=== PATIENT | male | born 1965 ===

== ENCOUNTER 2018-12-09 17:21 | Observation (INO) | payer BC ==
[2018-12-09] MEDS ORDERED: Sodium Chloride 0.9% 1,000 ML IV SCH ×2 (18:15→21:15)
--- NOTE | 2018-12-09 18:27 | RAD ---
Date of service: 12/09/2018 HISTORY: Near syncope COMPARISON: No prior. TECHNIQUE: Chest PA and lateral FINDINGS: LINES AND TUBES: None. LUNG AND PLEURA: The lungs are well inflated and clear. No pleural effusion or pneumothorax. HEART AND MEDIASTINUM: The heart is not enlarged. No aortic atherosclerotic calcifications present. The hilar and mediastinal contours are within normal limits. SKELETAL STRUCTURES: The bony structures are within normal limits for the patient's age. VISUALIZED UPPER ABDOMEN: Normal. OTHER FINDINGS: None. IMPRESSION: No active pulmonary disease.
--- NOTE | 2018-12-09 18:34 | ED PDOC ---
Syncope/Near Syncope/Dizziness Time Seen by Provider: 12/09/18 17:48 Chief Complaint (Nursing): Dizziness/Lightheaded Chief Complaint (Provider): Near syncope History Per: Patient History/Exam Limitations: no limitations Onset/Duration Of Symptoms: Days Additional Complaint(s): 53 yo M with h/o HTN, HLD, DM presents to ER for evaluation of low blood pressure and near syncope today. Pt reports for the last 2 months he has been feeling weak and will occassionally get sweaty and feel like he may pass out. Today while at work he had this episode but also notes everything went black. His BP was checked at work and it was low. Pt notes he takes medication for high blood pressure and took it today, but unsure of the name. Pt notes 6 months ago he had a gastric sleeve so does not eat as much as he used to. Pt denies fevers, chills, URI symptoms, abdominal pain, nausea or vomiting, changes in BMs, chest pain, SOB, headache or changes in vision. PMD: Dr. [place]ico [place] Past Medical History Reviewed: Historical Data, Nursing Documentation, Vital Signs Vital Signs: Last Vital Signs Temp 97.8 F 12/09/18 17:27 Pulse 75 12/09/18 17:27 Resp 16 12/09/18 17:27 BP 97/57 L 12/09/18 17:27 Pulse Ox 100 12/09/18 17:27 Primary Care Provider: Ch[place] - Medical History PMH: Diabetes, HTN, Hypercholesterolemia - Surgical History Surgical History: Cholecystectomy, Hernia Repair - Family History Family History: States: Unknown Family Hx - Social History Current smoker - smoking cessation education provided: No Alcohol: Occasional (drinks 3-4 beers on weekends) Drugs: Denies - Immunization History Hx Tetanus Toxoid Vaccination: No Hx Influenza Vaccination: Yes Hx Pneumococcal Vaccination: No - Home Medications Home Medications: Ambulatory Orders Medication Instructions Recorded Metoprolol Tartrate [Lopressor] 25 mg PO DAILY #30 tab 06/12/16 Bismuth Subsalicylate [Pepto 2 tab PO Q1 PRN #16 ctb 11/13/16 Bismol] Dicyclomine [Bentyl] 1 tab PO TID PRN #30 tab 11/13/16 MetFORMIN 11/13/16 - Allergies Allergies/Adverse Reactions: Allergies Allergy/AdvReac Type Severity Reaction Status Date / Time No Known Allergies Allergy Verified 12/09/18 17:27 Review of Systems Constitutional: Negative for: Fever, Chills Eyes: Negative for: Vision Change Cardiovascular: Negative for: Chest Pain, Palpitations, Orthopnea Respiratory: Negative for: Cough, Shortness of Breath, Hemoptysis, SOB with Exertion Gastrointestinal: Negative for: Nausea, Vomiting, Abdominal Pain Neurological: Negative for: Weakness, Numbness, Altered Mental Status, Headache Physical Exam - Reviewed Nursing Documentation Reviewed: Yes Vital Signs Reviewed: Yes - Physical Exam Comments: GENERALIZED APPEARANCE:Patient is awake, alert, oriented x3 in no acute distr ess. SKIN: Warm, dry; (-) cyanosis. HEAD: (-) scalp swelling or tenderness. EYES: (-) conjunctival pallor. ENMT: Mucous membranes dry. NECK: (-) tenderness, (-) stiffness, (-) lymphadenopathy. CHEST AND RESPIRATORY: (-) rales, (-) rhonchi, (-) wheezes; breath sounds equal bilaterally. HEART AND CARDIOVASCULAR: (-) irregularity; (-) murmur, (-) gallop. ABDOMEN AND GI: Soft; (-) distention, (-) tenderness, (-) rebound, (-) guarding, (-) palpable masses, (-) flank tenderness. EXTREMITIES: (-) deformity; (-) edema. Distal pulses: present. NEURO AND PSYCH: Mental status as above. 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 Strength symmetric. normal finger to nose, Gait: normal. - Laboratory Results Result Diagrams: 12/09/18 18:35 12/09/18 18:35 - ECG ECG: Positive for: Interpreted By Me ECG Rhythm: Positive for: Normal QRS, Sinus Rhythm (70). Negative for: ST/T Changes O2 Sat by Pulse Oximetry: 100 Medical Decision Making Medical Decision Makin:48 initial eval -- near syncope -- labs -- IVF -- ekg -- CXR -- troponin -- orthostatic VS -- re eval 18:25 orthostatic VS done by tech, seen by me, pt is hypotensive when standing 18:30 Date of service: 12/09/2018 HISTORY: Near syncope COMPARISON: No prior. TECHNIQUE: Chest PA and lateral FINDINGS: LINES AND TUBES: None. LUNG AND PLEURA: The lungs are well inflated and clear. No pleural effusion or pneumothorax. HEART AND MEDIASTINUM: The heart is not enlarged. No aortic atherosclerotic calcifications present. The hilar and mediastinal contours are within normal limits. SKELETAL STRUCTURES: The bony structures are within normal limits for the patient's age. VISUALIZED UPPER ABDOMEN: Normal. OTHER FINDINGS: None. IMPRESSION: No active pulmonary disease. 19:35 on re eval, pt is feeling fine, he has recieved 1L IVF and BP continues to be 97/[address] Russo, recommends head CT and admit to tele for syncope and hypotension 19:41 spoke to hospitalist, will admit to OBS tele for serial troponin and further eval discussed results, diagnosis, treatment and plan for admission with pt who is understanding and in agreement Disposition - Clinical Impression Clinical Impression: Hypotension, Syncope - Patient ED Disposition Is Patient to be Admitted: Yes Discussed With : warren Doctor Will See Patient In The: Hospital Counseled Patient/Family Regarding: Studies Performed, Diagnosis, Need For Followup - Disposition Disposition Time: 19:45 Condition: FAIR Forms: [employer] (Belizean) - Pt Status Changed To: Hospital Disposition Of: Observation - POA Present On Arrival: None
[2018-12-09 18:39] LABS: BASO # 0.1 K/uL (0.0-0.2); EOS # 0.5 K/uL (0.0-0.7); HEMOGLOBIN 14.1 g/dL (12.0-18.0); LYMPH # 1.2 K/uL (1.0-4.3); LYMPH % 21.1 % (20.0-40.0); MEAN CELL VOLUME 90.1 fl (80.0-94.0); MEAN CORPUSCULAR HEMOGLOBIN 30.3 pg (27.0-31.0); MEAN CORPUSCULAR HGB CONC 33.6 g/dL (33.0-37.0); MEAN PLATELET VOLUME 8.4 fl (7.2-11.7); MONO # 0.4 K/uL (0.0-0.8); MONO % 7.7 % (0.0-10.0); NEUT # 3.4 K/uL (1.8-7.0); NEUT % 61.2 % (50.0-75.0); RBC 4.66 Mil/uL (4.40-5.90); RED CELL DISTRIBUTION WIDTH 13.7 % (11.5-14.5); WHITE BLOOD COUNT 5.6 K/uL (4.8-10.8)
[2018-12-09 18:52] LABS: BLOOD UREA NITROGEN 20 mg/dl (9-20); CALCIUM 8.8 mg/dL (8.4-10.2); GFR NON-AFRICAN AMERICAN > 60
[2018-12-09 18:54] LABS: SQUAMOUS EPITHIAL 1 /hpf (0-5); URINE BACTERIA RARE (<OCC); URINE BILIRUBIN NEGATIVE (NEGATIVE); URINE BLOOD NEGATIVE (NEGATIVE); URINE CLARITY CLOUDY (Clear); URINE COLOR AMBER (YELLOW); URINE GLUCOSE (UA) 50 mg/dL (NEGATIVE); URINE LEUKOCYTE ESTERASE NEG Leu/uL (Negative); URINE PROTEIN 30 mg/dL (NEGATIVE)
[2018-12-09 18:56] LABS: ALB/GLOB RATIO 1.3 (1.0-2.1); ALBUMIN 4.2 g/dL (3.5-5.0); ALT/SGPT 35 U/L (21-72); AST/SGOT 44 U/L (17-59)
--- NOTE | 2018-12-09 21:01 | CP.PCM.HP ---
<Shani Cronin - Last Filed: 12/09/18 21:31> History of Present Illness - History of Present Illness History of Present Illness: CC: syncope HPI: 53 YO Male with PMHx of HTN, NIDDM presented to [facility] ED after a near syncopal episode. Patient was at normal state of sidra today until during work, he started feeling dizzy, blurry vision and had to sit down. He states that he did not loose consciousness or fall, but did have some blackness, was aware the entire time. Patient states that he as been feeling like that for the past 2 months, where he has episodes of dizziness and feels like he will pass out. He has noticed that at those time his bp is very low. There has been no new adjustments to his medication regimen, but he had a gastric bypass surgery 6 months ago and lost approx 100 lbs. Denies chest pain, dyspnea, palpitations, n/v, abdominal pain. PMHx: HTN, NIDDM, obesity SurgHX: cholecystectomy, gastric bypass FHx: denies SHx: ETOH On Saturdays 3-4 beers, denies smoking (quit 10 yrs ago) and illicit drug use NKDA Full code, has no surrogate but has a brother and sister who knows his well. Present on Admission - Present on Admission Any Indicators Present on Admission: No Review of Systems - Constitutional Constitutional: absent: Chills, Fever - Cardiovascular Cardiovascular: absent: Chest Pain, Dyspnea, Palpitations - Respiratory Respiratory: absent: Dyspnea - Gastrointestinal Gastrointestinal: absent: Abdominal Pain - Genitourinary Genitourinary: absent: Dysuria - Neurological Neurological: Dizziness, Syncope (near syncope ) Past Patient History - Infectious Disease Hx of Infectious Diseases: None - Past Social History Smoking Status: Former Smoker Alcohol: Occasional (drinks 3-4 beers on weekends) Drugs: Denies Home Situation {Lives}: Alone - CARDIAC Hx Hypercholesterolemia: Yes Hx Hypertension: Yes - ENDOCRINE/METABOLIC Hx Endocrine Disorders: Yes Hx Diabetes Mellitus Type 2: Yes - PSYCHIATRIC Hx Substance Use: No - SURGICAL HISTORY Hx Cholecystectomy: Yes - ANESTHESIA Hx Anesthesia: No Meds Allergies/Adverse Reactions: Allergies Allergy/AdvReac Type Severity Reaction Status Date / Time No Known Allergies Allergy Verified 12/09/18 17:27 Physical Exam - Constitutional Appears: No Acute Distress - Head Exam Head Exam: NORMAL INSPECTION - Eye Exam Eye Exam: EOMI, Normal appearance - ENT Exam ENT Exam: Mucous Membranes Moist - Respiratory Exam Respiratory Exam: Clear to Auscultation Bilateral, NORMAL BREATHING PATTERN. absent: Wheezes - Cardiovascular Exam Cardiovascular Exam: REGULAR RHYTHM, +S1, +S2 - GI/Abdominal Exam GI & Abdominal Exam: Normal Bowel Sounds, Soft. absent: Tenderness - Extremities Exam Extremities exam: Positive for: normal inspection. Negative for: calf tenderness, pedal edema - Back Exam Back exam: NORMAL INSPECTION - Neurological Exam Neurological exam: Alert, CN II-XII Intact, Oriented x3 - Psychiatric Exam Psychiatric exam: Normal Mood - Skin Skin Exam: Dry, Normal Color, Warm Results - Vital Signs Recent Vital Signs: Last Vital Signs Temp 98.2 F 12/09/18 19:59 Pulse 81 12/09/18 19:59 Resp 16 12/09/18 19:59 BP 97/72 L 12/09/18 19:59 Pulse Ox 100 12/09/18 19:59 - Labs Result Diagrams: 12/09/18 18:35 12/09/18 18:35 Labs: Laboratory Results - last 24 hr 12/09/18 12/09/18 12/09/18 18:35 18:35 18:35 WBC 5.6 RBC 4.66 Hgb 14.1 Hct 42.0 MCV 90.1 MCH 30.3 MCHC 33.6 RDW 13.7 Plt Count 181 MPV 8.4 Neut % (Auto) 61.2 Lymph % (Auto) 21.1 [place] % (Auto) 7.7 Eos % (Auto) 9.0 H Baso % (Auto) 1.0 Neut # (Auto) 3.4 Lymph # (Auto) 1.2 [place] # (Auto) 0.4 Eos # (Auto) 0.5 Baso # (Auto) 0.1 Sodium 137 Potassium 4.4 Chloride 101 Carbon Dioxide 30 Anion Gap 10 BUN 20 Creatinine 0.7 L Est GFR ( Amer) > 60 Est GFR (Non-Af Amer) > 60 POC Glucose (mg/dL) Random Glucose 117 H Lactic Acid 1.0 Calcium 8.8 Total Bilirubin 0.8 AST 44 ALT 35 Alkaline Phosphatase 36 L Troponin I < 0.0120 Total Protein 7.4 Albumin 4.2 Globulin 3.2 Albumin/Globulin Ratio 1.3 Urine Color Urine Clarity Urine pH Ur Specific [place] Urine Protein Urine Glucose (UA) Urine Ketones Urine Blood Urine Nitrate Urine Bilirubin Urine Urobilinogen Ur Leukocyte Esterase Urine RBC (Auto) Urine Microscopic WBC Ur Squamous Epith Cells Urine Bacteria Hyaline Casts Alcohol, Quantitative < 10 12/09/18 12/09/18 18:36 18:45 WBC RBC Hgb Hct MCV MCH MCHC RDW Plt Count MPV Neut % (Auto) Lymph % (Auto) [place] % (Auto) Eos % (Auto) Baso % (Auto) Neut # (Auto) Lymph # (Auto) [place] # (Auto) Eos # (Auto) Baso # (Auto) Sodium Potassium Chloride Carbon Dioxide Anion Gap BUN Creatinine Est GFR ( Amer) Est GFR (Non-Af Amer) POC Glucose (mg/dL) 129 H Random Glucose Lactic Acid Calcium Total Bilirubin AST ALT Alkaline Phosphatase Troponin I Total Protein Albumin Globulin Albumin/Globulin Ratio Urine Color Karlene Urine Clarity Cloudy Urine pH 6.0 Ur Specific [place] 1.026 Urine Protein 30 Urine Glucose (UA) 50 Urine Ketones Trace Urine Blood Negative Urine Nitrate Negative Urine Bilirubin Negative Urine Urobilinogen 4.0 Ur Leukocyte Esterase Neg Urine RBC (Auto) 2 Urine Microscopic WBC 3 Ur Squamous Epith Cells 1 Urine Bacteria Rare Hyaline Casts 6-10 H Alcohol, Quantitative - EKG Data EKG shows normal: Sinus rhythm Rate: Normal (Sinus with rate of 72, no acute ST or T wave changes ) Assessment & Plan - Assessment and Plan (Free Text) Assessment: Assessment/Plan: 53 YO Male with PMHx of HTN, NIDDM is admitted for near syncope. Near syncope -likely medication induced syncope -orthostatic BP pos for hypovolemia -CT head; No active pulmonary disease -EKG NST with no acute changes -hold PO BP meds for now -readjust as needed -IV fluids -c/t monitor cardiac and neuro status, fall precautions HTN -chronic -hold BP meds for now, adjust as needed NIDDM -chronic -follow up HbA1 levels -c.w meds -hypoglycemia and low sliding scale DVT prolx -Lovenox SC <Denny Parkinson - Last Filed: 12/10/18 01:53> Results - Vital Signs Recent Vital Signs: Last Vital Signs Temp 98.2 F 12/09/18 19:59 Pulse 81 12/09/18 19:59 Resp 16 12/09/18 19:59 BP 97/72 L 12/09/18 19:59 Pulse Ox 100 12/09/18 19:59 - Labs Result Diagrams: 12/09/18 18:35 12/09/18 18:35 Labs: Laboratory Results - last 24 hr 12/09/18 12/09/18 12/09/18 18:35 18:35 18:35 WBC 5.6 RBC 4.66 Hgb 14.1 Hct 42.0 MCV 90.1 MCH 30.3 MCHC 33.6 RDW 13.7 Plt Count 181 MPV 8.4 Neut % (Auto) 61.2 Lymph % (Auto) 21.1 [place] % (Auto) 7.7 Eos % (Auto) 9.0 H Baso % (Auto) 1.0 Neut # (Auto) 3.4 Lymph # (Auto) 1.2 [place] # (Auto) 0.4 Eos # (Auto) 0.5 Baso # (Auto) 0.1 Sodium 137 Potassium 4.4 Chloride 101 Carbon Dioxide 30 Anion Gap 10 BUN 20 Creatinine 0.7 L Est GFR ( Amer) > 60 Est GFR (Non-Af Amer) > 60 POC Glucose (mg/dL) Random Glucose 117 H Lactic Acid 1.0 Calcium 8.8 Total Bilirubin 0.8 AST 44 ALT 35 Alkaline Phosphatase 36 L Troponin I < 0.0120 Total Protein 7.4 Albumin 4.2 Globulin 3.2 Albumin/Globulin Ratio 1.3 Urine Color Urine Clarity Urine pH Ur Specific [place] Urine Protein Urine Glucose (UA) Urine Ketones Urine Blood Urine Nitrate Urine Bilirubin Urine Urobilinogen Ur Leukocyte Esterase Urine RBC (Auto) Urine Microscopic WBC Ur Squamous Epith Cells Urine Bacteria Hyaline Casts Alcohol, Quantitative < 10 12/09/18 12/09/18 12/10/18 18:36 18:45 01:37 WBC RBC Hgb Hct MCV MCH MCHC RDW Plt Count MPV Neut % (Auto) Lymph % (Auto) [place] % (Auto) Eos % (Auto) Baso % (Auto) Neut # (Auto) Lymph # (Auto) [place] # (Auto) Eos # (Auto) Baso # (Auto) Sodium Potassium Chloride Carbon Dioxide Anion Gap BUN Creatinine Est GFR ( Amer) Est GFR (Non-Af Amer) POC Glucose (mg/dL) 129 H 107 Random Glucose Lactic Acid Calcium Total Bilirubin AST ALT Alkaline Phosphatase Troponin I Total Protein Albumin Globulin Albumin/Globulin Ratio Urine Color Karl[place] Urine Clarity Cloudy Urine pH 6.0 Ur Specific [place] 1.026 Urine Protein 30 Urine Glucose (UA) 50 Urine Ketones Trace Urine Blood Negative Urine Nitrate Negative Urine Bilirubin Negative Urine Urobilinogen 4.0 Ur Leukocyte Esterase Neg Urine RBC (Auto) 2 Urine Microscopic WBC 3 Ur Squamous Epith Cells 1 Urine Bacteria Rare Hyaline Casts 6-10 H Alcohol, Quantitative Assessment & Plan - Assessment and Plan (Free Text) Plan: History as documented by resident was reviewed with patient and resident. I performed the evangelista elements of exam and agree with the above findings. D iagnostics were reviewed and medical decision making and plan of care performed by me. 53 yo male with hx of NIDDM and HTN p/w near syncope. He has been having these episodes for the past few months; however, today at work when tried to stand up everything turned black for a few seconds. Denies loss of consciousness or fall. Denies any chest pain, SOB, palpitation or any other associated symptoms prior, during or after the episode. In the ED was boarder line hypotensive with positive orthostasis. Blood work was unremarkable. EKG I personally reviewed showed NSR with no evidence of ongoing ischemia. CT head I personally reviewed showed old lacunar infarct but no acute pathology. CXR did not reveal any acute pathology either. On exam S1/S2, RRR, lungs clear b/l and abdomen soft, NT/ND without organomegaly. My impression is othostatic hypotension. Of note he underwent bariatric surgery few months ago and lost some 100 Ibs since. Likely does not need BP meds anymore. Will hold ant ihypertensives. Agree with IV hydration with close monitoring of hemodynamic and respiratory status. Trend troponins. Frequent Nuero-checks.
[2018-12-09] MEDS ORDERED: Glucagon Recombinant 1 mg Inj IM PRN (21:22)
[2018-12-09] MEDS ORDERED: Dextrose 50% SYRINGE Inj (50 ml) IV PRN (21:22)
[2018-12-10] MEDS: Insulin Regular 100 units/ml SC SCH ×2 (02:17→07:54)
[2018-12-10 06:43] LABS: BLOOD UREA NITROGEN 13 mg/dl (9-20); CALCIUM 8.4 mg/dL (8.4-10.2); GFR NON-AFRICAN AMERICAN > 60; HDL CHOLESTEROL 34 MG/DL (30-70)
[2018-12-10 06:52] LABS: LDL CHOLESTEROL 54 mg/dL (0-129)
--- NOTE | 2018-12-10 08:39 | CT ---
Date of service: 12/09/2018 PROCEDURE: CT HEAD WITHOUT CONTRAST. HISTORY: hypotension, near syncope COMPARISON: None available. TECHNIQUE: Axial computed tomography images were obtained through the head/brain without intravenous contrast. Radiation dose: Total exam DLP = 850.72 mGy-cm. This CT exam was performed using one or more of the following dose reduction techniques: Automated exposure control, adjustment of the mA and/or kV according to patient size, and/or use of iterative reconstruction technique. FINDINGS: HEMORRHAGE: No intracranial hemorrhage. BRAIN: No mass effect or edema. Mild cerebral atrophy present. Chronic appearing large lacunar infarct probably affecting the right basal ganglion/putamen and smaller lacunar infarcts same location yet contralateral. That on the right is in close proximity with the anterior limb of the right internal capsule. Correlate clinically with any known history remote strokes in this patient. Here no acute infarct suspect. Ipsilateral right frontal horn ex vacuo changes. VENTRICLES: As above. No hydrocephalus. CALVARIUM: Unremarkable. PARANASAL SINUSES: Mucosal thickening lobulated each sphenoid sinus right greater than left chronic mucosal sinusitis hypertrophy with or without retention cyst inferred. MASTOID AIR CELLS: Unremarkable as visualized. No inflammatory changes. OTHER FINDINGS: Debris/wax in each external auditory canal IMPRESSION: No intracranial hemorrhage or mass effect.. Bilateral chronic appearing basal ganglia lacune is right much larger than left. None with current mass effect. Preliminary [place] [facility] report mentions the right not the left. Sphenoid sinus inflammatory changes not mentioned on preliminary [place] [facility] report. Comments: Study marked for PA review .
[2018-12-10] MEDS ORDERED: Enoxaparin 40 mg Syringe SC SCH (09:00)
--- NOTE | 2018-12-10 10:54 | CARD ---
APPROVED REPORT Date of service: 12/09/2018 EKG Measurement Heart [id number] <Conclusion> Normal sinus rhythm Minimal voltage criteria for LVH, may be normal variant Borderline ECG
[2018-12-10 12:47] VITALS: BP 134/85; PULSE 61; RESP 13; O2SAT 99
[2018-12-10 12:59] VITALS: TEMP 98.2
--- NOTE | 2018-12-10 13:17 | CP.PCM.DIS ---
<Rosales Gutierrez - Last Filed: 12/10/18 13:17> Provider - Provider Date of Admission: 12/09/18 19:46 Attending physician: Denny Parkinson MD Time Spent in preparation of Discharge (in minutes): 35 Diagnosis - Discharge Diagnosis (1) Hypotension Status: Resolved Comment: Likely caused by BP medications. Patient had substantial weight loss since his bariatric surgery and has not followed up with PMD. Hospital Course - Lab Results Lab Results: Most Recent Lab Values WBC 5.6 K/uL (4.8-10.8) 12/09/18 18:35 RBC 4.66 Mil/uL (4.40-5.90) 12/09/18 18:35 Hgb 14.1 g/dL (12.0-18.0) 12/09/18 18:35 Hct 42.0 % (35.0-51.0) 12/09/18 18:35 MCV 90.1 fl (80.0-94.0) 12/09/18 18:35 MCH 30.3 pg (27.0-31.0) 12/09/18 18:35 MCHC 33.6 g/dL (33.0-37.0) 12/09/18 18:35 RDW 13.7 % (11.5-14.5) 12/09/18 18:35 Plt Count 181 K/uL (130-400) 12/09/18 18:35 MPV 8.4 fl (7.2-11.7) 12/09/18 18:35 Neut % (Auto) 61.2 % (50.0-75.0) 12/09/18 18:35 Lymph % (Auto) 21.1 % (20.0-40.0) 12/09/18 18:35 [place] % (Auto) 7.7 % (0.0-10.0) 12/09/18 18:35 Eos % (Auto) 9.0 % (0.0-4.0) H 12/09/18 18:35 Baso % (Auto) 1.0 % (0.0-2.0) 12/09/18 18:35 Neut # (Auto) 3.4 K/uL (1.8-7.0) 12/09/18 18:35 Lymph # (Auto) 1.2 K/uL (1.0-4.3) 12/09/18 18:35 [place] # (Auto) 0.4 K/uL (0.0-0.8) 12/09/18 18:35 Eos # (Auto) 0.5 K/uL (0.0-0.7) 12/09/18 18:35 Baso # (Auto) 0.1 K/uL (0.0-0.2) 12/09/18 18:35 Sodium 139 mmol/l (132-148) 12/10/18 06:04 Potassium 3.7 MMOL/L (3.6-5.0) 12/10/18 06:04 Chloride 104 mmol/L (98-107) 12/10/18 06:04 Carbon Dioxide 28 mmol/L (22-30) 12/10/18 06:04 Anion Gap 11 (10-20) 12/10/18 06:04 BUN 13 mg/dl (9-20) 12/10/18 06:04 Creatinine 0.6 mg/dl (0.8-1.5) L 12/10/18 06:04 Est GFR ( Amer) > 60 12/10/18 06:04 Est GFR (Non-Af Amer) > 60 12/10/18 06:04 POC Glucose (mg/dL) 177 mg/dL (65-110) H 12/10/18 06:47 Random Glucose 99 mg/dL (75-110) 12/10/18 06:04 Hemoglobin A1c 5.8 % (4.2-6.5) 12/10/18 06:04 Lactic Acid 1.0 mmol/L (0.7-2.1) 12/09/18 18:35 Calcium 8.4 mg/dL (8.4-10.2) 12/10/18 06:04 Total Bilirubin 0.8 mg/dl (0.2-1.3) 12/09/18 18:35 AST 44 U/L (17-59) 12/09/18 18:35 ALT 35 U/L (21-72) 12/09/18 18:35 Alkaline Phosphatase 36 U/L (38-126) L 12/09/18 18:35 Troponin I < 0.0120 ng/mL (0.00-0.120) 12/09/18 18:35 Total Protein 7.4 G/DL (6.3-8.2) 12/09/18 18:35 Albumin 4.2 g/dL (3.5-5.0) 12/09/18 18:35 Globulin 3.2 gm/dL (2.2-3.9) 12/09/18 18:35 Albumin/Globulin Ratio 1.3 (1.0-2.1) 12/09/18 18:35 Triglycerides 165 mg/DL (0-149) H 12/10/18 06:04 Cholesterol 122 mg/dL (0-199) 12/10/18 06:04 LDL Cholesterol Direct 54 mg/dL (0-129) 12/10/18 06:04 HDL Cholesterol 34 MG/DL (30-70) 12/10/18 06:04 TSH 3rd Generation 2.64 mIU/ML (0.46-4.68) 12/10/18 06:04 Urine Color Karlene (YELLOW) 12/09/18 18:45 Urine Clarity Cloudy (Clear) 12/09/18 18:45 Urine pH 6.0 (5.0-8.0) 12/09/18 18:45 Ur Specific [place] 1.026 (1.003-1.030) 12/09/18 18:45 Urine Protein 30 mg/dL (NEGATIVE) 12/09/18 18:45 Urine Glucose (UA) 50 mg/dL (NEGATIVE) 12/09/18 18:45 Urine Ketones Trace mg/dL (NEGATIVE) 12/09/18 18:45 Urine Blood Negative (NEGATIVE) 12/09/18 18:45 Urine Nitrate Negative (NEGATIVE) 12/09/18 18:45 Urine Bilirubin Negative (NEGATIVE) 12/09/18 18:45 Urine Urobilinogen 4.0 mg/dL (0.2-1.0) 12/09/18 18:45 Ur Leukocyte Esterase Neg Whit/uL (Negative) 12/09/18 18:45 Urine RBC (Auto) 2 /hpf (0-3) 12/09/18 18:45 Urine Microscopic WBC 3 /hpf (0-5) 12/09/18 18:45 Ur Squamous Epith Cells 1 /hpf (0-5) 12/09/18 18:45 Urine Bacteria Rare (<OCC) 12/09/18 18:45 Hyaline Casts 6-10 /hpf (0-2) H 12/09/18 18:45 Alcohol, Quantitative < 10 mg/dl (0-10) 12/09/18 18:35 - Hospital Course Hospital Course: pt seen and examined with Dr. Gregory. 53 YO Male with PMHx of HTN, NIDDM is admitted for near syncope thought to be secondary to medications. Patient has lost significant amount of weight since his gastric bypass surgery and has not followed up with his PMD since. He has been obtaining refills of his medications from PMD for his HTN and DM and does not check BP at home. His labs were unremarkable, BP has been normal off medications. CT of head significant for Chronic appearing large lacunar infarct probably affecting the right basal ganglion/putamen and smaller lacunar infarcts same location yet contralateral that on the right is in close proximity with the anterior limb of the right internal capsule. Patient denies hx of CVA. Start on ASA 81mg. Decrease Metformin: Start Metforming 500mg PO BID. D/c Metforming 1000mg PO BID. CT HEAD W/O CONTRAST: FINDINGS: HEMORRHAGE: No intracranial hemorrhage. BRAIN: No mass effect or edema. Mild cerebral atrophy present. Chronic appearing large lacunar infarct probably affecting the right basal ganglion/putamen and smaller lacunar infarcts same location yet contralateral. That on the right is in close proximity with the anterior limb of the right internal capsule. Correlate clinically with any known history remote strokes in this patient. Here no acute infarct suspect. Ipsilateral right frontal horn ex vacuo changes. VENTRICLES: As above. No hydrocephalus. CALVARIUM: Unremarkable. PARANASAL SINUSES: Mucosal thickening lobulated each sphenoid sinus right greater than left chronic mucosal sinusitis hypertrophy with or without retention cyst inferred. MASTOID AIR CELLS: Unremarkable as visualized. No inflammatory changes. OTHER FINDINGS: Debris/wax in each external auditory canal IMPRESSION: No intracranial hemorrhage or mass effect.. Bilateral chronic appearing basal ganglia lacune is right much larger than left. None with current mass effect. Preliminary [place] report mentions the right not the left. Sphenoid sinus inflammatory changes not mentioned on preliminary [place] [facility] report. Patient is to follow up with PCP in 1 week. Discharge Exam - Head Exam Head Exam: NORMAL INSPECTION - Eye Exam Eye Exam: EOMI, Normal appearance, PERRL - Respiratory Exam Respiratory Exam: Clear to PA & Lateral, NORMAL BREATHING PATTERN - Cardiovascular Exam Cardiovascular Exam: REGULAR RHYTHM, +S1, +S2 - Neurological Exam Neurological exam: Alert, CN II-XII Intact, Normal Gait, Oriented x3 - Psychiatric Exam Psychiatric exam: Normal Affect, Normal Mood - Skin Skin Exam: Dry, Intact, Normal Color, Warm Discharge Plan - Discharge Medications Prescriptions: Aspirin [Adult Low Dose Aspirin EC] 81 mg PO DAILY #30 tablet. RX: Aspirin [Low Dose Aspirin EC] 81 mg PO DAILY #30 tablet. RX: Metformin HCl [Glucophage] 500 mg PO BID #60 tablet RX: Metformin HCl [Glucophage] 500 mg PO BID #60 tablet - Follow Up Plan Condition: FAIR Disposition: HOME/ ROUTINE Instructions: Low Blood Pressure (DC) Referrals: Chico [place] MD [Family Provider] - <Suzanna Gregory - Last Filed: 12/10/18 19:02> Provider - Provider Date of Admission: 12/09/18 19:46 Attending physician: Denny Parkinson MD Hospital Course - Lab Results Lab Results: Most Recent Lab Values WBC 5.6 K/uL (4.8-10.8) 12/09/18 18:35 RBC 4.66 Mil/uL (4.40-5.90) 12/09/18 18:35 Hgb 14.1 g/dL (12.0-18.0) 12/09/18 18:35 Hct 42.0 % (35.0-51.0) 12/09/18 18:35 MCV 90.1 fl (80.0-94.0) 12/09/18 18:35 MCH 30.3 pg (27.0-31.0) 12/09/18 18:35 MCHC 33.6 g/dL (33.0-37.0) 12/09/18 18:35 RDW 13.7 % (11.5-14.5) 12/09/18 18:35 Plt Count 181 K/uL (130-400) 12/09/18 18:35 MPV 8.4 fl (7.2-11.7) 12/09/18 18:35 Neut % (Auto) 61.2 % (50.0-75.0) 12/09/18 18:35 Lymph % (Auto) 21.1 % (20.0-40.0) 12/09/18 18:35 [place] % (Auto) 7.7 % (0.0-10.0) 12/09/18 18:35 Eos % (Auto) 9.0 % (0.0-4.0) H 12/09/18 18:35 Baso % (Auto) 1.0 % (0.0-2.0) 12/09/18 18:35 Neut # (Auto) 3.4 K/uL (1.8-7.0) 12/09/18 18:35 Lymph # (Auto) 1.2 K/uL (1.0-4.3) 12/09/18 18:35 [place] # (Auto) 0.4 K/uL (0.0-0.8) 12/09/18 18:35 Eos # (Auto) 0.5 K/uL (0.0-0.7) 12/09/18 18:35 Baso # (Auto) 0.1 K/uL (0.0-0.2) 12/09/18 18:35 Sodium 139 mmol/l (132-148) 12/10/18 06:04 Potassium 3.7 MMOL/L (3.6-5.0) 12/10/18 06:04 Chloride 104 mmol/L (98-107) 12/10/18 06:04 Carbon Dioxide 28 mmol/L (22-30) 12/10/18 06:04 Anion Gap 11 (10-20) 12/10/18 06:04 BUN 13 mg/dl (9-20) 12/10/18 06:04 Creatinine 0.6 mg/dl (0.8-1.5) L 12/10/18 06:04 Est GFR ( Amer) > 60 12/10/18 06:04 Est GFR (Non-Af Amer) > 60 12/10/18 06:04 POC Glucose (mg/dL) 109 mg/dL (65-110) 12/10/18 11:29 Random Glucose 99 mg/dL (75-110) 12/10/18 06:04 Hemoglobin A1c 5.8 % (4.2-6.5) 12/10/18 06:04 Lactic Acid 1.0 mmol/L (0.7-2.1) 12/09/18 18:35 Calcium 8.4 mg/dL (8.4-10.2) 12/10/18 06:04 Total Bilirubin 0.8 mg/dl (0.2-1.3) 12/09/18 18:35 AST 44 U/L (17-59) 12/09/18 18:35 ALT 35 U/L (21-72) 12/09/18 18:35 Alkaline Phosphatase 36 U/L (38-126) L 12/09/18 18:35 Troponin I < 0.0120 ng/mL (0.00-0.120) 12/09/18 18:35 Total Protein 7.4 G/DL (6.3-8.2) 12/09/18 18:35 Albumin 4.2 g/dL (3.5-5.0) 12/09/18 18:35 Globulin 3.2 gm/dL (2.2-3.9) 12/09/18 18:35 Albumin/Globulin Ratio 1.3 (1.0-2.1) 12/09/18 18:35 Triglycerides 165 mg/DL (0-149) H 12/10/18 06:04 Cholesterol 122 mg/dL (0-199) 12/10/18 06:04 LDL Cholesterol Direct 54 mg/dL (0-129) 12/10/18 06:04 HDL Cholesterol 34 MG/DL (30-70) 12/10/18 06:04 TSH 3rd Generation 2.64 mIU/ML (0.46-4.68) 12/10/18 06:04 Urine Color Karlene (YELLOW) 12/09/18 18:45 Urine Clarity Cloudy (Clear) 12/09/18 18:45 Urine pH 6.0 (5.0-8.0) 12/09/18 18:45 Ur Specific [place] 1.026 (1.003-1.030) 12/09/18 18:45 Urine Protein 30 mg/dL (NEGATIVE) 12/09/18 18:45 Urine Glucose (UA) 50 mg/dL (NEGATIVE) 12/09/18 18:45 Urine Ketones Trace mg/dL (NEGATIVE) 12/09/18 18:45 Urine Blood Negative (NEGATIVE) 12/09/18 18:45 Urine Nitrate Negative (NEGATIVE) 12/09/18 18:45 Urine Bilirubin Negative (NEGATIVE) 12/09/18 18:45 Urine Urobilinogen 4.0 mg/dL (0.2-1.0) 12/09/18 18:45 Ur Leukocyte Esterase Neg Whit/uL (Negative) 12/09/18 18:45 Urine RBC (Auto) 2 /hpf (0-3) 12/09/18 18:45 Urine Microscopic WBC 3 /hpf (0-5) 12/09/18 18:45 Ur Squamous Epith Cells 1 /hpf (0-5) 12/09/18 18:45 Urine Bacteria Rare (<OCC) 12/09/18 18:45 Hyaline Casts 6-10 /hpf (0-2) H 12/09/18 18:45 Alcohol, Quantitative < 10 mg/dl (0-10) 12/09/18 18:35 Attending/Attestation - Attestation I have personally seen and examined this patient.: Yes I have fully participated in the care of the patient.: Yes I have reviewed all pertinent clinical information, including history, physical exam and plan: Yes Notes (Text): Syncope prob due to Hypotension and Hypoglycemia Hypotension likely due to antihypertensive med , pt may no longer need antihypertensives after weight loss from Bariatric surgery and also need less oral Hypoglycemic dosage after 100pounds weight loss d/c Metoprolol decrease Metformin to 500mg bid CT of head negative Trop negative CXR : neg Labs normal ff up with PMD - DR Colorado for further outpt work up
== END 2018-12-10 13:10 | disposition home or self-care (01) ==
LOC: H.ER 17:21 → H.ERHOLD 19:46
PROVIDERS: ADMIT Internal Medicine; ATTEND Internal Medicine
DX: I95.9 Hypotension, unspecified (principal); E11.9 Type 2 diabetes mellitus without complications; E78.00 Pure hypercholesterolemia, unspecified; E78.5 Hyperlipidemia, unspecified; E86.1 Hypovolemia; I10 Essential (primary) hypertension; I63.89 Other cerebral infarction; Z87.891 Personal history of nicotine dependence; Z90.49 Acquired absence of other specified parts of digestive tract; Z98.84 Bariatric surgery status; Z79.84 Long term (current) use of oral hypoglycemic drugs
CPT/HCPCS: 70450; 71046; 80048; 80053; 80061; 81003; 82948; 83036; 83605; 84443; 84484; 85025; 93005; 96360; 96372; 99285; G0378; G0480; J1650; J7030